=== PATIENT | female | born 1980 | race American Indian/Alaskan Native ===

== ENCOUNTER 2019-01-18 08:41 | Emergency (ER) | payer OTHER ==
[2019-01-18 08:52] VITALS: BP 115/65
[2019-01-18] MEDS ORDERED: ZOFRAN ODT PO ONE (09:16)
--- NOTE | 2019-01-18 09:40 | Emergency Department Report ---
Vomiting/Diarrhea - HPI Chief Complaint: Nausea/Vomiting/Diarrhea Stated Complaint: VOMIT/DIARRHEA Time Seen by Provider: 01/18/19 09:08 Duration: 2 Days Severity: mild Nausea/Vomiting Severity: Mild (patient is still able to tolerate some by mouth) Diarrhea Severity: Mild Pain Severity: None Symptoms: Yes Watery Diarrhea, Yes Able to Tolerate Fluids, No Bloody diarrhea, No Fever, No Recent Unusual Foods, No Recent Untreated Water, No Recent use of Antibiotics, No Family w/ Similar Symptoms, No Contacts w/ Similar Symptoms, No Rash, No Hematuria, No Recent URI Symptoms ED Review of Systems ROS: Stated complaint: VOMIT/DIARRHEA Other details as noted in HPI Comment: All other systems reviewed and negative ED Past Medical Hx - Past Medical History Previous Medical History?: No - Surgical History Past Surgical History?: Yes - Social History Smoking Status: Current Every Day Smoker Substance Use Type: Alcohol - Medications Home Medications: Home Medications Medication Instructions Recorded Confirmed Last Taken Type Dicyclomine [Bentyl] 10 mg PO QID #15 capsule 01/18/19 Unknown Rx Diphenoxylate/Atropine [Lomotil] 1 tab PO Q4H PRN #10 tablet 01/18/19 Unknown Rx Ondansetron [Zofran Odt] 4 mg PO Q8HR PRN #10 tab.rapdis 01/18/19 Unknown Rx Vomiting Diarrhea Exam - Exam General: Vital signs noted. No distress. Alert and acting appropriately. HEENT: Yes Moist Mucous Membranes, No Pharyngeal Erythema, No Pharyngeal Exudates, No Rhinorrhea, No Conjuctival Injection, No Frontal Tenderness, No Maxillary Tenderness Neck: No Adenopathy, No Rigidity Lungs: Yes Clear Lung Sounds, Yes Good Air Exchange, No Wheezes, No Stridor, No Cough, No Nasal Flaring, No Retractions, No Use of Accessory Muscles Heart exam: Regular: Yes, Murmur: No, Tachycardia: No Abdomen: Tenderness: No, Peritoneal Signs: No, Distention: No, Hyperactive Bowel sounds: No Skin exam: Rash: No, Edema: No, Normal turgor: Yes Neurologic: Alert and oriented, no deficits. Musculoskeletal: Unremarkable. ED Course Vital Signs 01/18/19 08:49 Temperature 98.4 F Pulse Rate 63 Respiratory 20 Rate Blood Pressure 115/65 O2 Sat by Pulse 100 Oximetry ED Medical Decision Making - Medical Decision Making Patient given Zofran to help control her nausea and the patient is stable for discharge. Critical care attestation.: If time is entered above; I have spent that time in minutes in the direct care of this critically ill patient, excluding procedure time. ED Disposition Clinical Impression: Viral gastroenteritis Disposition: DC-01 TO HOME OR SELFCARE Is pt being admited?: No Does the pt Need Aspirin: No Condition: Stable Instructions: Gastroenteritis (ED) Forms: Work/School Release Form(ED) Time of Disposition: 09:40
== END 2019-01-18 09:47 | disposition home or self-care (01) ==
LOC: ED 08:41
DX: A08.4 Viral intestinal infection, unspecified (principal); F17.200 Nicotine dependence, unspecified, uncomplicated
CPT/HCPCS: 99282; Q0162

== ENCOUNTER 2020-04-05 02:24 | Emergency (ER) | payer OTHER ==
--- NOTE | 2020-04-05 03:37 | XRay Report ---
Left wrist 4 views INDICATION: Left wrist pain. IMPRESSION: No fracture or subluxation of the left wrist is identified. Signer Name: Enoc Plummer MD Signed: 04/05/2020 3:32 AM Workstation Name: [id number]
--- NOTE | 2020-04-05 05:28 | Emergency Department Report ---
ED General Adult HPI - General Chief complaint: Extremity Injury, Upper Stated complaint: LT WRIST PAIN AND SWELLING Time Seen by Provider: 04/05/20 04:50 Source: patient Mode of arrival: Ambulatory Limitations: No Limitations - History of Present Illness Initial comments: 39-year-old -[place] female patient without significant past medical history presents with complaints of left wrist pain and swelling x last night. Patient states pain started while she was at work. 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 She rates her current pain as a 7/10 in severity and states it did not improve with ibuprofen. She denies any numbness/tingling/weakness in her hand, difficulty with movement, or any trauma to the hand. Patient also denies any fever or history/family history of gout/rheumatoid arthritis - Related Data Previous Rx's Medication Instructions Recorded Last Taken Type Dicyclomine [Bentyl] 10 mg PO QID #15 capsule 01/18/19 Unknown Rx Diphenoxylate/Atropine [Lomotil] 1 tab PO Q4H PRN #10 tablet 01/18/19 Unknown Rx Ondansetron [Zofran Odt] 4 mg PO Q8HR PRN #10 tab.rapdis 01/18/19 Unknown Rx Diclofenac Sodium 50 mg PO TID PRN #21 tablet. 04/05/20 Unknown Rx Diclofenac Sodium [Solaraze 3%] 1 applicatio TP QID PRN #1 tube 04/05/20 Unknown Rx Allergies Allergy/AdvReac Type Severity Reaction Status Date / Time No Known Allergies Allergy Unverified 01/18/19 08:52 ED Review of Systems ROS: Stated complaint: LT WRIST PAIN AND SWELLING Other details as noted in HPI Constitutional: denies: chills, fever Musculoskeletal: joint swelling Skin: denies: rash, lesions, change in color Neurological: denies: numbness, paresthesias, abnormal gait ED Past Medical Hx - Past Medical History Previous Medical History?: No - Surgical History Past Surgical History?: No - Social History Smoking Status: Current Every Day Smoker Substance Use Type: None - Medications Home Medications: Home Medications Medication Instructions Recorded Confirmed Last Taken Type Dicyclomine [Bentyl] 10 mg PO QID #15 capsule 01/18/19 Unknown Rx Diphenoxylate/Atropine [Lomotil] 1 tab PO Q4H PRN #10 tablet 01/18/19 Unknown Rx Ondansetron [Zofran Odt] 4 mg PO Q8HR PRN #10 tab.rapdis 01/18/19 Unknown Rx Diclofenac Sodium 50 mg PO TID PRN #21 tablet. 04/05/20 Unknown Rx Diclofenac Sodium [Solaraze 3%] 1 applicatio TP QID PRN #1 tube 04/05/20 Unknown Rx ED Physical Exam - General Limitations: No Limitations General appearance: alert, in no apparent distress - Head Head exam: Present: atraumatic, normocephalic - Eye Eye exam: Absent: scleral icterus - Respiratory Respiratory exam: Absent: respiratory distress - Cardiovascular Cardiovascular Exam: Present: regular rate - Expanded Upper Extremity Exam Left Forearm Wrist exam: Present: full ROM. Absent: tenderness (Tenderness noted b ilaterally to the medial and lateral portion of the wrist), swelling, abrasion, laceration, ecchymosis, deformity, dislocation, erythema, tenderness over anatomical snuff box Hand Wrist exam: Present: full ROM. Absent: swelling, abrasion, laceration, ecchymosis, deformity, crepidus, dislocation, erythema Neuro motor exam: Present: wrist extension intact, thumb opposition intact, thumb IP flexion intact, thumb adduction intact, fingers 2-5 abduction intact ED Course Vital Signs 04/05/20 04/05/20 02:37 06:08 Temperature 98.1 F 98.1 F Pulse Rate 78 71 Respiratory 18 18 Rate Blood Pressure 149/80 Blood Pressure 132/80 [Left] O2 Sat by Pulse 100 100 Oximetry ED Medical Decision Making - Radiology Data Radiology results: report reviewed Left wrist 4 views INDICATION: Left wrist pain. IMPRESSION: No fracture or subluxation of the left wrist is identified. Signer Name: Enoc Plummer MD Signed: 04/05/2020 3:32 AM Workstation Name: [email or web address] ([facility]) - Medical Decision Making Patient here with complaints of left wrist pain starting last night while at work. She denies any injury. No visual abnormalities or swelling are noted on exam. Patient has full range of motion and normal sensation of the hand and wrist with normal pulses and perfusion of the fingers. X-ray of the wrist is negative for any acute bony abnormalities. Patient placed in a Velcro wrist splint and informed to follow-up with orthopedics as needed. Rice method with NSAIDs is recommended at this time. Strict return precautions were discussed in great detail with patient who verbalizes understanding. Critical care attestation.: If time is entered above; I have spent that time in minutes in the direct care of this critically ill patient, excluding procedure time. ED Disposition Clinical Impression: Left wrist pain Disposition: DC-01 TO HOME OR SELFCARE Is pt being admited?: No Condition: Stable Instructions: Arthralgia (ED), RICE Therapy (ED) Prescriptions: Diclofenac Sodium 50 mg PO TID PRN #21 tablet.dr PRN Reason: pain Diclofenac Sodium [Solaraze 3%] 1 applicatio TP QID PRN #1 tube PRN Reason: pain Referrals: LAURA BEY MD [Staff Physician] - as needed Forms: Work/School Release Form(ED)
[2020-04-05 06:10] VITALS: BP 132/80
== END 2020-04-05 06:08 | disposition home or self-care (01) ==
LOC: ED 02:24
DX: M25.532 Pain in left wrist (principal); R22.32 Localized swelling, mass and lump, left upper limb; F17.200 Nicotine dependence, unspecified, uncomplicated; Z79.899 Other long term (current) drug therapy